=== PATIENT | female | born 1995 | race Caucasian/White ===

== ENCOUNTER 2019-08-23 21:05 | Emergency (ER) | payer OTHER ==
[2019-08-23] MEDS ORDERED: Lidocaine 1% 10 ML MDV INJECT ONE (21:10)
--- NOTE | 2019-08-23 21:33 | EDM.PDOC ---
ED HPI GENERAL MEDICAL PROBLEM - General Chief Complaint: Laceration Stated Complaint: RIGHT KNEE MAY NEED STITCHES Time Seen by Provider: 08/23/19 21:08 Source of Information: Reports: Patient History Limitations: Reports: No Limitations - History of Present Illness INITIAL COMMENTS - FREE TEXT/NARRATIVE: Patient's unfortunate 24-year-old female who presents emergent department today with complaint of laceration right knee. Patient reports she was in her normal state of health until approximately an hour prior to arrival when she slipped and fell on ice which caused a 4 cm L-shaped laceration to her right anterior knee. Patient has a worsened meter L-shaped laceration partial dermis thickness no active bleeding no foreign body noted distal neurovascular is intact patient denies any other injuries Right Knee Pain Score (Numeric/FACES): 1 - Related Data Allergies Allergy/AdvReac Type Severity Reaction Status Date / Time cephalexin [From Keflex] Allergy Hives Verified 08/23/19 21:14 Home Meds: Home Meds Sulfamethoxazole/Trimethoprim [Bactrim Ds Tablet] 1 each PO BID #14 tablet 08/23 [Rx] Past Medical History Cardiovascular History: Reports: None Respiratory History: Reports: None Gastrointestinal History: Reports: None Genitourinary History: Reports: None [employer]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 Musculoskeletal History: Reports: None Neurological History: Reports: None Psychiatric History: Reports: None Endocrine/Metabolic History: Reports: Obesity/BMI 30+ Hematologic History: Reports: None Immunologic History: Reports: None Oncologic (Cancer) History: Reports: None Dermatologic History: Reports: None - Infectious Disease History Infectious Disease History: Reports: None - Past Surgical History HEENT Surgical History: Reports: Oral Surgery Social & Family History - Tobacco Use Smoking Status *Q: Never Smoker - Caffeine Use Caffeine Use: Reports: None - Recreational Drug Use Recreational Drug Use: No ED ROS GENERAL - Review of Systems Review Of Systems: See Below Musculoskeletal: Reports: Other (Laceration) ED EXAM, SKIN/RASH Exam: See Below Exam Limited By: No Limitations General Appearance: Alert, Mild Distress Neck: Normal Inspection, Supple, Non-Tender, Full Range of Motion Respiratory/Chest: No Respiratory Distress, Lungs Clear, Normal Breath Sounds, No Accessory Muscle Use, Chest Non-Tender Cardiovascular: Normal Peripheral Pulses, Regular Rate, Rhythm, No Edema, No Gallop, No JVD, No Murmur, No Rub GI/Abdominal: Normal Bowel Sounds, Soft, Non-Tender, No Organomegaly, No Distention, No Abnormal Bruit, No Mass Extremities: Other (4 cm L-shaped laceration to the right anterior knee, partial dermis thickness no active bleeding no foreign body noted distal neurovascular is intact) Neurological: Alert Skin: Warm, Dry ED SKIN PROCEDURES - Additional/Other Procedure(s) Other (Free Text) Procedure(s): Laceration repair: Betadine prep, local anesthesia lidocaine 1% 4 mL's, 4 centimeter L-shaped laceration, wound was cleansed and irrigated within his Betadine, wound was closed with 3-0 Ethilon #5 simple interrupted sutures, patient tolerated procedure well, dressing by nursing Course - Vital Signs Last Recorded V/S: Last Vital Signs Temp 96.9 F 08/23/19 21:11 Pulse 72 08/23/19 21:11 Resp 16 08/23/19 21:11 BP 132/84 08/23/19 21:11 Pulse Ox 100 08/23/19 21:11 - Orders/Labs/Meds Meds: Medications Discontinued Medications Generic Name Dose Route Start Last Admin Trade Name Vonda PRN Reason Stop Dose Admin Lidocaine HCl 10 ml 08/23/19 21:10 08/23/19 21:15 Xylocaine 1% INJECT 08/23/19 21:11 10 ml ONETIME ONE Administration Departure - Departure Time of Disposition: 21:33 Disposition: Home, Self-Care 01 Clinical Impression: Laceration of right lower leg without foreign body Qualifiers: Encounter type: initial encounter Qualified Code(s): S81.811A - Laceration without foreign body, right lower leg, initial encounter - Discharge Information Prescriptions: Sulfamethoxazole/Trimethoprim [Bactrim Ds Tablet] 1 each PO BID #14 tablet Referrals: PCP,None [Primary Care Provider] - Forms: ED Department Discharge Additional Instructions: Home, rest, keep wound clean and dry, clean wound daily apply Neosporin bandage , sutures out in 10-14 days, return as needed for worsening condition Sepsis Event Note - Evaluation Sepsis Screening Result: No Definite Risk - Focused Exam Vital Signs: Vital Signs Temp Pulse Resp BP Pulse Ox 08/23/19 21:11 96.9 F 72 16 132/84 100 Date Exam was Performed: 08/23/19 Time Exam was Performed: 21:33
[2019-08-23] MEDS ORDERED: Diphtheria,Pertussis(Acell),Tetanus Vaccine 0.5 ML Syringe IM ONE (21:34)
== END 2019-08-23 22:04 | disposition home or self-care (01) ==
LOC: JD.ED 21:05 → MERGE 21:05 → JD.ED 22:04
DX: S81.011A Laceration without foreign body, right knee, initial encounter (principal); Z23 Encounter for immunization; Z88.1 Allergy status to other antibiotic agents; W00.0XXA Fall on same level due to ice and snow, initial encounter
CPT/HCPCS: 12002; 90471; 90715; 99282; J2001